=== PATIENT | female | born 1990 | race Caucasian/White ===

== ENCOUNTER → 2020-09-01 15:58 | Outpatient (CLI) | payer BC, SELFPAY ==
[2020-09-01 16:22] LABS: Basophils # 0.1 K/mm3 (0-0.2); Basophils % 0.5 % (0.1-2.0); Eosinophils # 0.2 K/mm3 (0.0-0.4); Eosinophils % 2.2 % (0.1-12.0); Hematocrit 40.2 % (37.0-47.0); Hemoglobin 12.6 g/dL (12.2-16.2); Lymphocytes # 3.2 K/mm3 (0.7-4.5); Lymphocytes % 30.3 % (10-50); Mean Corpuscular HGB Conc 31.3 g/dL (31.8-35.4); Mean Corpuscular Hemoglobin 25.5 pg (27.0-31.2); Mean Corpuscular Volume 81.5 fl (81-99); Mean Platelet Volume 9.4 fl (7.4-10.4); Monocytes # 0.5 K/mm3 (0.1-1.0); Monocytes % 4.6 % (1.7-9.3); Neutrophils # 6.6 K/mm3 (1.8-7.8); Neutrophils % 62.3 % (37.0-80.0); Platelet Count 303 K/mm3 (142-424); Red Blood Count 4.94 M/mm3 (4.20-5.40); Red Cell Distribution Width 14.9 % (11.5-17.5); White Blood Count 10.6 K/mm3 (4.8-10.8)
== END ==
PROVIDERS: PCP Family Medicine; Visit Provider Physician Assistant
DX: Z20.822 Contact with and (suspected) exposure to COVID-19 (principal)
CPT/HCPCS: 85025; U0003

== ENCOUNTER 2021-04-30 18:17 | Emergency (ER) | payer BC, SELFPAY ==
[2021-04-30 19:00] VITALS: BP 143/84; PULSE 68; RESP 22; TEMP 36.9; O2SAT 99; BMI 37.9
--- NOTE | 2021-04-30 20:12 | HMH.EDUTC ---
[facility] [place] Clinical Impression: Encounter for laboratory testing for COVID-19 virus Disposition: Home, Self-Care Condition on Discharge: Good Instructions: DI for COVID-19 (Suspected or Confirmed ), Preventing the Spread of Coronavirus Discharge Instructions Additional Instructions: *Monitor Temp, Over the counter Motrin or Tylenol as directed/as needed Tylenol every 4 hours and Motrin every 6 hours (as long as your family doctor has told you that you can take it) for fever or pain. and straight to ER if unable to lower temp less than 101.0 after medication given Follow up IMMEDIATELY for new or worsening symptoms or no Noticeable improvement over the next 48-72 hours. 911 for difficulty breathing or swallowing You were tested for today for COVID19 your test result should be back in the next 24-48 hours, you was given handout on how to log onto the [facility] portal to get your results if you have trouble logging on you may call the [facility] [place] You was given a handout with instructions for Self Quarantine and Self isolation for while you wait on test results and what to do if they are positive If you are positive the Health Dept will be contacting you also Make sure to take your Vitamins Vit. C Vit D and Zinc if you can take them Prescriptions: Brompheniramine/Pseudoephed/Dm [Bromfed Dm Cough Syrup] 5 - 10 ml PO Q46H PRN #200 ml PRN Reason: Cough Transmission Status: Pending to [id number] Referrals: Hiren Barrios MD [Primary Care Provider] - As needed Forms: Work/School Release Medical Decision Making - Narciso Inquiry Pt receiving controlled substance: No Narciso was queried for this patient: No Vital Signs: 04/30/21 19:00 Temperature 98.4 F Temperature Source Oral Pulse Rate [Right Brachial] 68 Respiratory Rate 22 Blood Pressure [Right Arm] 143/84 H Blood Pressure Mean [Right Arm] 103 Blood Pressure Source [Right Arm] Automatic Cuff Blood Pressure Position [Right Arm] Sitting 02 Sat by Pulse Oximetry 99 Oxygen Delivery Method Room Air Orders (Tests/Meds): ORDERS Category Date Time Status Covid-19 Nasal PCR ([facility]) Routine Lab 04/30/21 18:59 Ordered [facility] [place] HPI - General Stated complaint: covid test Time Seen by Provider: 04/30/21 20:12 Mode of Arrival: Ambulatory Source of Information: Patient Limitations: No Limitations Description of Symptoms (Recalled from Triage Doc. by RN): COVID TEST D/T EXPOSURE. DENIES SYMPTOMS HEENT Symptoms (Recalled from RN notes): No Resp Symptoms (Recalled from RN notes): No Skin Symptoms (Recalled from RN notes): No MS Symptoms (Recalled from RN notes): No Functional Status (Recalled from RN notes): WNL - History of Present Illness Provider Complaint: Patient states that she was recently around family member that tested positive for COVID States that she has been having cough today and runny nose with scratchy throat so she wanted to get tested - Related Data Previous Rx's Medication Instructions Recorded Brompheniramine/Pseudoephed/Dm 5 - 10 ml PO Q46H PRN #200 ml 04/30/21 [Bromfed Dm Cough Syrup] Allergies Allergy/AdvReac Type Severity Reaction Status Date / Time cefaclor Allergy Verified 04/30/21 19:37 Cephalosporins Allergy Verified 04/30/21 19:37 - Worker's Comp Is this a Worker's Comp case?: No [facility] History - Hepatitis A Screen Drug use history?: No High risk sexual behaviors?: No History of sexually transmitted infection?: No Currently employed?: No Childcare worker?: No Do you have indoor plumbing?: Yes Do you have electricity?: Yes Attestation statement:: This patient has been screened for Hepatitis A risk factors. I have reviewed the patient's past medical history: Yes - Social History Alcohol Intake: never Occupational Status: other Household Members: other ROS Obtained: Yes All systems reviewed & no additional complaints, Yes Systems reviewed as appropriate & no additional complaints - Co
[2021-04-30 20:19] VITALS: BP 143/84; PULSE 68; RESP 22; TEMP 36.9; O2SAT 99
== END 2021-04-30 20:29 | disposition home or self-care (01) ==
PROVIDERS: Emergency Provider Nurse Practitioner; PCP Family Medicine
DX: U07.1 COVID-19 (principal)
CPT/HCPCS: 99202; C9803; G0463; U0003; U0005

== ENCOUNTER 2021-08-17 09:44 | Emergency (ER) | payer OTHER, BC, SELFPAY ==
[2021-08-17 09:45] VITALS: BP 131/71; PULSE 81; RESP 20; TEMP 36.6; O2SAT 98; BMI 38.7
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
--- NOTE | 2021-08-17 10:12 | PC.NURSE ---
patient ambulatory to restroom
--- NOTE | 2021-08-17 10:19 | PC.NURSE ---
Patient back to room; hooked to monitor; urine speciman sent to lab
[2021-08-17 10:22] VITALS: O2SAT 99
[2021-08-17 10:40] LABS: Urine Pregnancy, HCG Qual. Negative (Negative)
[2021-08-17 11:21] VITALS: BP 131/71; PULSE 81; RESP 20; TEMP 36.7; O2SAT 98
== END 2021-08-17 11:21 | disposition home or self-care (01) ==
PROVIDERS: Emergency Provider Emergency Medicine; PCP Family Medicine
DX: S16.1XXA Strain of muscle, fascia and tendon at neck level, initial encounter (principal); S39.012A Strain of muscle, fascia and tendon of lower back, initial encounter; S29.012A Strain of muscle and tendon of back wall of thorax, initial encounter; V49.49XA Driver injured in collision with other motor vehicles in traffic accident, initial encounter; Y92.488 Other paved roadways as the place of occurrence of the external cause
CPT/HCPCS: 72040; 72070; 72100; 81025; 99282

== ENCOUNTER 2023-10-07 11:22 | Outpatient (CLI) | payer BC, SELFPAY ==
[2023-10-07 11:40] LABS: Basophils # 0.1 K/mm3 (0-0.2); Basophils % 0.9 % (0.1-2.0); Eosinophils # 0.1 K/mm3 (0.0-0.4); Eosinophils % 0.9 % (0.1-12.0); Hematocrit 36.9 % (37.0-47.0); Lymphocytes # 2.4 K/mm3 (0.7-4.5); Lymphocytes % 26.2 % (10-50); Mean Corpuscular HGB Conc 32.6 g/dL (31.8-35.4); Mean Corpuscular Hemoglobin 27.8 pg (27.0-31.2); Mean Corpuscular Volume 85.3 fl (81-99); Mean Platelet Volume 9.2 fl (7.4-10.4); Monocytes # 0.5 K/mm3 (0.1-1.0); Monocytes % 5.6 % (1.7-9.3); Neutrophils % 66.3 % (37.0-80.0); Platelet Count 254 K/mm3 (142-424); Red Blood Count 4.32 M/mm3 (4.20-5.40); Red Cell Distribution Width 14.6 % (11.5-17.5); White Blood Count 9.1 K/mm3 (4.8-10.8)
[2023-10-07 12:18] LABS: Alanine Aminotransferase 20 U/L (12-78); Albumin Level 4.2 g/dl (3.5-5.0); Alkaline Phosphatase 85 U/L (38-126); Anion Gap 8.8 mEq/L (5-15); Aspartate Amino Transferase 24 U/L (14-36); Bilirubin,Direct 0.1 mg/dl (0.0-0.4); Bilirubin,Indirect 0.1 mg/dL (0.0-0.9); Bilirubin,Total 0.2 mg/dl (0.2-1.3); Bilirubin,Unconjugated 0.1 mg/dL (0.0-1.1); Blood Urea Nitrogen 18 mg/dl (7-17); Calcium 9.6 mg/dl (8.4-10.2); Carbon Dioxide 29 mmol/L (22.0-30.0); Chloride 107 mmol/L (98-107); Chol/HDL Ratio 4.1 (1-3.5); Cholesterol 193 mg/dl (140-200); Estimated Glomerular Filt Rate 73 ml/min (>60); GFR (African American) 88 ML/MIN (>60); Glucose 89 mg/dl (74-100); HDL Cholesterol 47 mg/dl (40-60); Potassium 3.8 mmoL/L (3.5-5.1); Sodium 141 mmol/L (136-145); Total Protein,Serum 7.2 g/dl (6.3-8.2); Triglycerides 77 mg/dl (30-150); VLDL Cholesterol 15 mg/dL (0-40)
[2023-10-07 12:29] LABS: Direct LDL Cholesterol 102.16 mg/dL (100-129)
[2023-10-07 12:35] LABS: Free T4 (Free Thyroxine) 1.04 ng/dl (0.78-2.19)
[2023-10-07 12:48] LABS: Thyroid Stimulating Hormone 3.49 uIU/mL (0.465-4.68)
== END 2023-10-07 23:59 ==
LOC: LAB 11:23
PROVIDERS: PCP Family Medicine; Visit Provider Nurse Practitioner
DX: I34.1 Nonrheumatic mitral (valve) prolapse (principal); R01.1 Cardiac murmur, unspecified; R07.89 Other chest pain; R06.00 Dyspnea, unspecified; I11.9 Hypertensive heart disease without heart failure; K21.9 Gastro-esophageal reflux disease without esophagitis
CPT/HCPCS: 36415; 80048; 80061; 80076; 84439; 84443; 85025

== ENCOUNTER 2023-10-28 07:06 | Outpatient (CLI) | payer BC, SELFPAY ==
--- NOTE | 2023-10-28 07:07 | CT_ITS ---
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 A noncontrast coronary calcium scan was performed. A CT attenuation threshold of 130 Hounsfield units (HU) was used for the detection of calcium in contiguous voxels of 1 sq mm in area to be counted as individual lesions. Bolus tracking in the ascending aorta with a threshold of 180 HU was performed. Immediately afterwards, ECG synchronized cardiac CT was then performed from the cardiac base to apex using retrospective gating with ECG tube current modulation. A total of 85 mL of Isovue 370 mg/mL contrast medium was administered at 5 mL/sec followed by a saline flush using a biphasic injection protocol. A tube voltage of 120 KVp was used. The patient received the following medications prior to the cardiac CT. 0.4 mg of sublingual nitroglycerin The average heart rate at the time of acquisition was 48 bpm and regular. Image Reconstruction Transaxial images were reconstructed at 0.67 mm slide thickness. Data was reviewed interactively on an advanced workstation capable of 2 and 3-dimensional displays in all conventional reconstruction formats, including multiplanar reformations, maximum intensity projections, curved multiplanar reformations, and volume rendered reconstructions. When applicable, selected routine images describing the relevant coronary anatomy and pathology were saved and sent to PACS. Complications None Technical Quality Overall image quality was good. Coronary artery opacification was adequate. Total DLP (Dose-Length Product) is 2264.4 mGy-cm. The reported value represents the total of one or more individual components during the CT acquisition of this date and at this time, and as such, the same value may appear in more than one CT report depending on the interpreting/reporting physicians. COMPARISON None FINDINGS CT Coronary Calcium Scoring LMA (Left Main Artery) = 0 LAD (Left Anterior Descending) = 0 LCX (Left Coronary Circumflex) = 0 RCA (Right Coronary Artery) = 0 Total Calcium Score = 0 using the AJ-130 method. The interpretation of the calcium heart score is based on the following continuum*: 0 = no calcified plaque detected (risk of coronary artery disease is very low ??? less than 5%) 1-10 = calcium detected in extremely minimal levels (risk of coronary diseases is still low ??? less than 10%) 11-100 = mild levels of plaque detected with certainty (mild or minimal narrowing of heart arteries is likely) 101-400 = definite,at least moderate levels of plaque detected (relatively high risk of a heart attack within 3-5 years) >401-999 = extensive levels of plaque detected (high risk of heart attack, high levels of vascular disease are present, high likelihood of at least one significant coronary narrowing) *The calcium heart score quantifies the burden of coronary calcification/plaque in the coronary arteries. The calcium heart score is not able to evaluate the presence or burden of non-calcified (i.e. soft) plaque. There is no identifiable calcification in the aortic valve, mitral annulus or mitral valve, pericardium, or myocardium. Coronary CT Angiography The coronary arterial system is right dominant. Quantitative Stenosis Grading: Left Main (LM): The left main originates normally from the left sinus of Valsalva. The LM bifurcates into the left anterior descending artery and left circumflex artery. The LM is patent with no evidence of atherosclerosis. Left Anterior Descending (LAD) and Diagonal Branches: The LAD gives off 3 diagonal branches. The LAD and its branches are patent with no evidence of atherosclerosis. There is no evidence of LAD-myocardial bridge. Left Circumflex (LCX) and Obtuse Marginals (OM): The LCX gives off 1 Obtuse Marginal (OM) branch. The LCX and its branches are patent with no evidence of atherosclerosis. Right Coronary Artery (RCA): The RCA originates normally from the right sinus of Valsalva. The RCA gives off a posterior descending artery (PDA) and posterolateral (PL) branches. The RCA and its branches are patent with no evidence of atherosclerosis. Non-Coronary Cardiac Findings: Analysis of the left ventricular (LV) structure and function was performed after 3-D reconstruction of the LV from axial images, with user-corrected automatic contouring for assessment of LV volumes and user-defined reconstruction from oblique planes for measurement of 3-D cardiac structure and function. -The left ventricle systolic function is normal. -There is no left atrial appendage filling defect. Two right pulmonary veins and two left pulmonary veins drain normally into the left atrium. -No pericardial thickening or calcification. -Central and branch pulmonary arteries in the [id number] are unremarkable. -Thoracic aorta within the visualized thoracic aortic-branches in the [id number] is unremarkable. Extracardiac Structures No significant extra-cardiac findings. Note, however, that this study is focused on the cardiac findings. IMPRESSION -No coronary calcification with an Agatston score = 0 using the AJ-130 method. -No evidence of significant flow-limiting atherosclerosis of the coronary arteries. -No evidence of coronary anomalies or myocardial bridges. -CAD-RADS 0. Management recommendations per ACC/AHA guidelines*, as clinically appropriate. *Recommendations: CAD RADS 0: Reassurance. Consider non-atherosclerotic causes of chest pain. CAD RADS 1: Consider non-atherosclerotic causes of chest pain. Consider preventive therapy and risk factor modification. CAD RADS 2: Consider non-atherosclerotic causes of chest pain. Consider preventive therapy and risk factor modification, particularly for patients with nonobstructive plaque in multiple segments. CAD RADS 3: Consider further functional testing. Consider symptom-guided anti-ischemic and preventive pharmacotherapy as well as risk factor modification per published guideline statements. CAD RADS 4A: Consider further functional testing or invasive coronary angiography with revascularization per published guideline statements. Consider symptom-guided anti-ischemic and preventive pharmacotherapy as well as risk factor modification per published guideline statements. CAD RADS 4B: Invasive coronary angiography recommended with revascularization per published guideline statements. Consider symptom-guided anti-ischemic and preventive pharmacotherapy as well as risk factor modification per published guideline statements. CAD RADS 5: Consider invasive angiography and/or viability assessment with revascularization per published guideline statements. Consider symptom-guided anti-ischemic and preventive pharmacotherapy as well as risk factor modification per published guideline statements. CRITICAL RESULT None COMMUNICATION Per this written report The coronary and cardiac findings of this CCTA were reviewed, reported, and signed by Cholo Bishop MD ([employer]) Conclusion Electronically signed by : Mya Bisohp MD 10/29/2023 23:37:24
[2023-10-28 07:25] VITALS: BMI 81.8
--- NOTE | 2023-10-28 07:40 | CA_ITS ---
APPROVED REPORT EXAM: Comprehensive 2D, Doppler, and color-flow Echocardiogram Internet Systems Administrator: Yasmin Dobbs CRT Ht: 5 ft 6 in Wt: 243lbs BSA: 2.17 BP: 146/74 mmHg Indications: Chest Pain, Murmur 2D Dimensions LA Volume 59.50 mL LA Volume Index 27.42 mL/m2 (M/F) 16-34 M-Mode Dimensions RVDd 2.66 cm (0.9-2.6) LA Diam 3.38 cm (1.9-4.0) LVDd 5.32 cm (3.5-5.7) LVDs 3.35 cm (3.5-5.7) IVSd 1.22 cm (0.6-1.1) PWd 0.78 cm (0.6-1.1) EF (Teich) 66.40% FS 37.00% EDV (Teich) 136.50 mL TAPSE 2.87 (<1.7) ESV (Teich) 45.80 mL LV Diastology E Decel Time 207 (160-240 msec) E/A Ratio 1.57 MED A' 10.50 cm/s LAT A' 8.90 cm/s Aortic Valve AO Peak GR. 10.80 mmHg Mitral Valve MV A Velocity 75.0 (40-130 cm/s) E/A Ratio 1.57 Pulmonary Valve PV Peak Velocity 195.0 (50-150 cm/s) Tricuspid Valve TR P. Velocity 296.00 cm/s RAP Estimate 10.00 mmHg RVSP 45.00 mmHg Left Ventricle The left ventricle is normal size. The left ventricular systolic function is normal. The left ventricular ejection fraction is within the normal range. There is normal left ventricular wall thickness. There is normal LV segmental wall motion. The left ventricular diastolic function is normal. LVEF is 55%. Right Ventricle The right ventricle is normal size. The right ventricular systolic function is normal. Atria The left atrium size is normal. The right atrium size is normal. There is no Doppler evidence of interatrial shunt. Aortic Valve The aortic valve is normal in structure. The aortic valve is trileaflet. There is no aortic valvular stenosis. No aortic regurgitation. Mitral Valve The mitral valve is normal in structure. No evidence of mitral valve stenosis. Trace mitral regurgitation. Tricuspid Valve The tricuspid valve leaflets are thin and pliable. Mild tricuspid regurgitation. RVSP is 20-25 mmHg. Pulmonic Valve The pulmonary valve is normal in structure. Trace pulmonic regurgitation. Great Vessels The aortic root is normal in size. The ascending aorta is normal in size. IVC is normal in size and collapses >50% with inspiration. Pericardium There is no pericardial effusion. Other Information Study Quality: Fair Conclusion Normal biventricular systolic function. Mild TR. Electronically signed by : Mya Bishop MD 10/29/2023 23:01:53
[2023-10-28 07:58] LABS: Urine Pregnancy, HCG Qual. Negative (Negative)
[2023-10-28 08:01] VITALS: BP 108/48; PULSE 59; RESP 14; O2SAT 100
[2023-10-28] MEDS: NITROGLYCERIN 0.4MG SL TABLET 0.400000000000000022 MG SL (08:01)
[2023-10-28 08:03] VITALS: BP 98/52; PULSE 58; RESP 16; O2SAT 100
[2023-10-28 08:06] VITALS: BP 104/52; PULSE 54; RESP 16; O2SAT 100
[2023-10-28] MEDS: IOPAMIDOL-370 (76%);100ML BOTTLE 85 ML IV (08:18)
[2023-10-28] MEDS: SODIUM CHLORIDE 0.9% 10ML SYR (RAD ONLY) 10 ML IV (08:18)
[2023-10-28] MEDS: 0.9 % SODIUM CHLORIDE 50 ML VIAL IV (08:18)
[2023-10-28 08:20] VITALS: BP 105/58; PULSE 67; RESP 16; O2SAT 100
== END 2023-10-28 23:59 ==
LOC: RAD 07:07
PROVIDERS: PCP Family Medicine; Visit Provider Nurse Practitioner
DX: R07.89 Other chest pain (principal); I34.1 Nonrheumatic mitral (valve) prolapse; R01.1 Cardiac murmur, unspecified
CPT/HCPCS: 75571; 75574; 81025; 93306; Q9967

== ENCOUNTER 2023-12-12 14:24 | Outpatient (CLI) | payer BC, SELFPAY ==
[2023-12-12 14:55] LABS: Alanine Aminotransferase 21 U/L (12-78); Alkaline Phosphatase 68 U/L (38-126); Amylase 40 U/L (30-110); Aspartate Amino Transferase 29 U/L (14-36); Bilirubin,Total 0.7 mg/dl (0.2-1.3); Blood Urea Nitrogen 14 mg/dl (7-17); Calcium 10.5 mg/dl (8.4-10.2); Carbon Dioxide 29 mmol/L (22.0-30.0); Chloride 104 mmol/L (98-107); Estimated Glomerular Filt Rate 84 ml/min (>60); GFR (African American) 101 ML/MIN (>60); Glucose 82 mg/dl (74-100); Sodium 141 mmol/L (136-145)
[2023-12-12 14:56] LABS: Albumin Level 4.2 g/dl (3.5-5.0); Albumin/Globulin Ratio 1.4 (1.1-1.8); Total Protein,Serum 7.2 g/dl (6.3-8.2)
[2023-12-12 14:57] LABS: Lipase 49 U/L (23-300)
== END 2023-12-12 23:59 | disposition home or self-care (01) ==
LOC: LAB 14:26
PROVIDERS: PCP Family Medicine; Visit Provider Physician Assistant
DX: R10.11 Right upper quadrant pain (principal)
CPT/HCPCS: 36415; 80053; 82150; 83690

== ENCOUNTER 2024-06-14 09:40 | Outpatient (CLI) | payer BC, SELFPAY ==
--- NOTE | 2024-06-14 09:44 | XR_ITS ---
FINAL REPORT CLINICAL HISTORY: Foot Pain FINDINGS: AP, oblique and lateral views of the left foot were obtained. There is no prior exam for comparison. There is no acute fracture or dislocation. The joint spaces are preserved. Soft tissues are normal. IMPRESSION: No acute osseous abnormality of the left foot. Reviewed, Interpreted and Dictated by Radha Steward MD Transcribed by Ivis Garay Authenticated and [facility]
--- NOTE | 2024-06-14 09:44 | XR_ITS ---
FINAL REPORT CLINICAL HISTORY: Foot Pain FINDINGS: AP, oblique and lateral views of the right foot were obtained. There is no prior exam for comparison. There is no acute fracture or dislocation. The joint spaces are preserved. Soft tissues are normal. IMPRESSION: No acute osseous abnormality of the right foot. Reviewed, Interpreted and Dictated by Radha Steward MD Transcribed by Ivis Garay Authenticated and [facility]
== END 2024-06-14 23:59 | disposition home or self-care (01) ==
LOC: RAD 09:41
PROVIDERS: PCP Psychiatry & Neurology Sleep Medicine; Visit Provider Podiatrist
DX: M79.671 Pain in right foot (principal); M79.672 Pain in left foot
CPT/HCPCS: 73630

== ENCOUNTER 2025-07-10 18:17 | Emergency (ER) | payer BC, SELFPAY ==
--- OUTSIDE RECORDS SUMMARY | 2024-05-31 04:30 | XMS_ITS ---
Author Organization [facility] Address [facility] [address] [place] [id number] Care Team Providers Care Fur Ironer Name Role Phone Lux Barrios Primary Care Provider Kristen Reynaga Unavailable [phone] Allergies Allergen (clinical drug ingredient) Drug/Non Drug Allergy documented on EMR Reaction Allergy Type Onset Date Status cefaclor Cefaclor joint swelling Drug Allergy Ac tive Substance with penicillin structure and antibacterial mechanism of action (substance) Penicillins joint swelling Drug Allergy Active Results Component Value Reference Range Notes CBC Venipuncture (in house) Reviewed date:06/01/2024 09:17:48 AM Interpretation:Normal Performing Lab: Notes/Report: Normal wbc 7.6 3.5 - 10 lymph 35.8 15 - 50 mid 7.8 2 - 15 gran 56.4 35 - 80 rbc 4.71 3.5 - 5.5 hgb 12.7 11.5 - 16.5 hct 38.6 35 - 55 mcv 81.9 75 - 100 mch 26.9 25 - 35 mchc 32.8 31 - 38 platlet 279 100 - 400 Glycohemoglobin A1c (in hous e) Reviewed date:06/01/2024 09:19:43 AM Interpretation:5.1% Performing Lab: Notes/Report: 5.1% glycohemoglobin 5.1% 5 - 6.5 % P-Comprehensive Metabolic Pa gregoria (CMP) Reviewed date:06/01/2024 09:19:21 AM Interpretation:Normal Performing Lab: Notes/Report: CLIA: [id number] Chris Carrington MD, [employer] [address] [place] [address] , [place] [address] Test performed by [facility] Sodium 139 135-145 mmol/L Potassium 4.5 3.5-5.3 mmol/L Chloride 105 97-108 mmol/L CO2 23 22-32 mmol/L Glucose 87 65-99 mg/dL BUN 12 6-20 mg/dL Creatinine 0.77 0.50-1.00 mg/dL Calcium 9.6 8.6-10.4 mg/dL eGFR by Creatinine 105 >59 mL/min/1.73m2 Protein 6.8 6.0-8.3 g/dL Albumin 4.1 3.5-5.3 g/dL Alkaline Phosphatase 104 35-121 IU/L ALT (SGPT) 14 <5-47 IU/L AST (SGOT) 15 <5-40 IU/L Bilirubin, Total 0.5 <0.2-1.2 mg/dL A/G Ratio 1.5 1.1-2.5 P-Iron Reviewed date:06/01/2024 09:18:38 AM Interpretation:102 Performing Lab: Notes/Report: Test performed by [facility] [address] [place] [address] , [place] [address] Chris Carrington MD, [employer] CLIA: [id number] Iron 102 37-145 ug/dL P-Lipid Panel Reviewed date:06/01/2024 09:17:21 AM Interpretation:LDL 119; HDL 46;TG 101 Performing Lab: Notes/Report: Test performed by [facility] [address] [place] [address] , [place] [id number] Chris Carrington MD, [employer] CLIA: [id number] Cholesterol 185 <200 mg/dL Triglycerides 101 <150 mg/dL HDL Cholesterol 46 >39 mg/dL Cholesterol / HDL Ratio 4.02 0.00-4.44 Ratio Non-HDL Cholesterol 139 <130 mg/dL LDL Cholesterol (Calculation) 119 <130 mg/dL LDL Cholesterol Levels* Less than 100 mg/dL Optimal 100 to 129 mg/dL Near Optimal/ Above Optimal 130 to 159 mg/dL Borderline High 160 to 189 mg/dL High 190 mg/dL and above Very High * Categories as recommended by the 2004 ATPIII guidelines LDL/HDL Ratio 2.6 <3.3 Ratio LDL Cholesterol Patient History Test Date: 05/31/2024 LDL Results: 119 Units: mg/dL % Change: - P-T4 (Thyroxine) Reviewed date:06/01/2024 09:18:14 AM Interpretation:6.82 Performing Lab: Notes/Report: Test performed by [facility] [address] [place], [place] [address] , [place] [address] Chris Carrington MD, [employer] CLIA: [id number] Thyroxine (T4) 6.82 4.50-11.70 ug/dL P-TSH Reviewed date:06/01/2024 09:19:01 AM Interpretation:1.76 Performing Lab: Notes/Report: Test performed by [facility] [address] [place], [place] [address] [place] [address] Chris Carrington MD, [employer] CLIA: [id number] TSH 1.76 0.43-5.25 mU/L Reason For Referral Diagnosis 1 Foot pain, bilateral (M79.671) Referral Organization [facility] Referring Provider First Name Kristen Referring Provider Last Name Juhi Referring Provider Speciality Family Pra ctice Referred Provider PODIATRY, . Referred Provider Specialty Podiatry General Notes Kristen Reynaga 9:59:50 AM > bilateral foot pain; has tried inserts and change of foot wear; will xray today, Elyssa To 06/01/2024 10:17:06 AM > faxed to [facility] Podiatry, Elyssa To 06/04/2024 10:34:16 AM > Elyssa To 06/04/2024 10:32:54 AM > spoke with [place]; said she does not have referral; double-checked that our fax number for them was correct and it is; she said someone could have done something with it ; Zuleika cardenas Brynn 06/07/2024 9:35:22 AM > spoke with [place]; they still do not have the referral; double checked with the office about fax number and they say it is correct; Zuleika cardenas Brynn 06/07/2024 9:59:11 AM > fax received by office Referral Priority Routine REASON FOR VISIT blood work and check up Medications Medication SIG (Take, Route, Frequency, Duration) Notes Start Date End Date Status Levothyroxine Sodium 25 MCG 1 tab(s) orally once a day; Duration: 30 day(s) 09/01/2022 Not-Taking Vital Signs Blood pressure systolic 124 mm Hg 05/31/20 24 Blood pressure diastolic 76 mm Hg 024 Heart Rate 56 /min 05/31/2024 Height 66 in 05/31/2024 Weight 250.4 lbs 05/31/2024 BMI 40.41 kg/m2 05/31/2024 Encounters Encounter Location Date Provider Diagnosis [facility] [address] [place] [id number] 05/31/2024 Kristen Reynaga Thyroid disorder screen Z13.29 ; Diabetes mellitus screening Z13.1 ; Iron deficiency anemia secondary to inadequate dietary iron intake D50.8 ; Lipid screening Z13.220 and Foot pain, bilateral M79.671 Assessments Encounter Date Diagnosis (ICD Code) Assessment Notes Treatment Notes Treatment Clinical Notes Section Notes 05/31/2024 Thyroid disorder screen (ICD-10 - Z13.29) 05/31/2024 Diabetes mellitus screening (ICD-10 - Z13.1) 05/31/2024 Iron deficiency anemia secondary to inadequate dietary iron intake (ICD-10 - D50.8) 05/31/2024 Lipid screening (ICD-10 - Z13.220) 05/31/2024 Foot pain, bilateral (ICD-10 - M79.671) she walks on concrete all nigh with her job at ; she has tried different ensoles and shoes; she ices her feet at night after work and uses heat other guzman; suggested she wear shoes with arch supports around the house; demonstrated foot exercises/ stretches Plan Of Treatment Treatment Notes Assessment Notes Foot pain, bilateral she walks on concre te all nigh with her job at ; she has tried different ensoles and shoes; she ices her feet at night after work and uses heat other guzman; suggested she wear shoes with arch supports around the house; demonstrated foot exercises/ stretches Pending Test Test Name Order Date X ray : Foot, left 05/31/2024 X ray : Foot, right 05/31/2024 Referrals Referral Date Details 05/31/2024 05/31/2024, . PODIAT RY Next Appt Details Follow Up: will notify of te st results, Reason: Progress Notes * RASHADCATRACHOSHAHABDOB: [birth year] (35 yo F)Acc No.[id number]:05/31/2024 Progress Notes Patient: LISSETH FREY Provider: EVANS Pichardo :1990 A ge:34 Y S ex:Female Date:05/31/2024 Address:[address] [place] [address], [place], [id number] Pcp:Lux Barrios Subjective: * Chief Complaints: * 1 . Blood work and check up. * HPI: H PI: Patient is here today for a check up with fasting labs. Pt sts that she has some family Hx of diabetes and would like to be screened. Pt sts that she would also like to get her thyroid checked. Pt sts that she has bad foot pain and would like to get her feet examined today. * ROS: R ESPIRATORY: no S hortness of breath. n o C hest congestion.?no C ough. C ARDIOLOGY: no C hest pain. n o P alpitations. n o L eg edema. n o S hortness of breath. D ERMATOLOGY: no R charmaine. n o H jennifer. * Medical History: C at [employer] 6 yo, Current on immunizations., Mitral valve prolapse. * Surgical History: C section 05/2010. * Family History: F ather: alive 44 yrs. M other: alive 42 yrs. P aternal Grand Father: . P aternal Grand Mother: alive. 1 brother(s) , 1 sister(s) . . * Social History: C URRENT TOBACCO USE: No . C affeine: yes, frequency:some. Home smoke detector use: no. Past smoking status: no, Smoking status: Does not smoke. Alcohol: no. * Medications: N ot-Taking Levothyroxine Sodium 25 MCG Tablet 1 tab(s) orally once a day , Discontinued Bactrim DS 800-160 MG Tablet 1 tablet Orally Two times a day , Discontinued Ondansetron 4 MG Tablet Disintegrating 1 tablet on the tongue and allow to dissolve Orally three times a day as needed , Medication List reviewed and reconciled with the patient * Allergies: P enicillins: joint swelling, Cefaclor: joint swelling. Objective: * Vitals: W t:250.4, Temp:98.1, BP:124/76, HR:56, Nurse:WMViki, Ht: 66, BMI:40.41. * Examination: G eneral Examination: General Appearance: NAD appears healthy alert pleasant Color good. H EENT: sclera and conjunctiva clear, PERRLA, TM's normal, translucent. O ral cavity: mucosa moist and WNL no erythema. N erica: supple no lymphadenopathy no carotid bruits no thyromegaly. H eart: RRR 50/min. L ungs: CTAB A&P. A bdomen: bowel sounds present soft and nontender. N eurologic Exam: alert and oriented.?Extremities: no leg edema. A nkle / Foot: Inspection: no swelling or ecchymosis. P alpation:? tenderness at insertion of plantar fascia-worse on the right. R ang of motion: normal inversion and eversion normal dorsiflexion and plantar flexion of both feet. G ait: normal. F oot: bilateral. Assessment: * Assessment: 1. T hyroid disorder screen - Z13.29 (Primary) 2 . D iabetes mellitus screening - Z13.1 3 . I therese deficiency anemia secondary to inadequate dietary iron intake - D50.8 4 . L ipid screening - Z13.220 5 . F oot pain, bilateral - M79.671 Plan: * Treatment: Value Reference Range T hyroxine (T4) 6.82 4.50-11.70 - ug/dL * Kristen Reynaga 06/01/2024 9:13:18 AM > I spoke with pt and reported results ?LAB: P-TSH (Collection Date & Time - 05/31/2024 09:05 AM)?1.76* Value Reference Range T SH 1.76 0.43-5.25 - mU/L * Kristen Reynaga 06/01/2024 9:18:48 AM > I spoke with pt and reported results 2.?Diabetes mellitus screening?LAB: Glycohemoglobin A1c (in house) (Collection Date & Time - 05/31/2024)? 5.1%* Value Reference Range g lycohemoglobin 5.1% 5 - 6.5 % * Cristela Curiel 05/31/2024 11: 52:54 AM >Kristen Reynaga 06/01/2024 9:19:30 AM > I spoke with pt and reported results 3.?Iron deficiency anemia secondary to inadequate dietary iron intake?LAB: P-Comprehensive Metabolic Panel (CMP) (Collection Date & Time - 05/31/2024 09:05 AM)?Normal* Value Reference Range A /G Ratio 1.5 1.1-2.5 - * A lbumin 4.1 3.5-5.3 - g/dL * A lkaline Phosphatase 104 35-121 - IU/L * A LT (SGPT) 14 <5-47 - IU/L * A ST (SGOT) 15 <5-40 - IU/L * B ilirubin, Total 0.5 <0.2-1.2 - mg/dL * B UN 12 6-20 - mg/dL * C alcium 9.6 8.6-10.4 - mg/dL * C hloride 105 97-108 - mmol/L * C O2 23 22-32 - mmol/L * C reatinine 0.77 0.50-1.00 - mg/dL * G lucose 87 65-99 - mg/dL * P otassium 4.5 3.5-5.3 - mmol/L * S odium 139 135-145 - mmol/L * P rotein 6.8 6.0-8.3 - g/dL * e GFR by Creatinine 105 >59 - mL/min/1.73m2 * Kristen Reynaga 06/01/2024 9:19:08 AM > I spoke with pt and reported results ?LAB: P-Iron (Collection Date & Time - 05/31/2024 09:05 AM)?102* Value Reference Range I therese 102 37-145 - ug/dL * Kristen Reynaga 06/01/2024 9:18:23 AM > I spoke with pt and reported results ?LAB: CBC Venipuncture (in house) (Collection Date & Time - 05/31/2024)? Normal* Value Reference Range w bc 7.6 3.5 - 10 * l ymph 35.8 15 - 50 * m id 7.8 2 - 15 * g ran 56.4 35 - 80 * r bc 4.71 3.5 - 5.5 * h gb 12.7 11.5 - 16.5 * h ct 38.6 35 - 55 * m cv 81.9 75 - 100 * m ch 26.9 25 - 35 * m chc 32.8 31 - 38 * p latlet 279 100 - 400 * Cristela Curiel 05/31/2024 11: 53:55 AM >Kristen Reynaga 06/01/2024 9:17:32 AM > I spoke with pt and reported results 4.?Lipid screening?LAB: P-Lipid Panel (Collection Date & Time - 05/31/2024 09:05 AM)?LDL 119; HDL 46;TG 101* Value Reference Range C holesterol / HDL Ratio 4.02 0.00-4.44 - Ratio * C holesterol 185 <200 - mg/dL * H DL Cholesterol 46 >39 - mg/dL * L DL Cholesterol (Calculation) 119 <130 - mg/d L * L DL/HDL Ratio 2.6 <3.3 - Ratio * N on-HDL Cholesterol 139 H <130 - mg/dL * T riglycerides 101 <150 - mg/dL * Kristen Reynaga 06/01/2024 9:16:42 AM > I spoke with pt and reported results; discussed lowfat/cho diet 5.?Foot pain, bilateral?Imaging: X ray : Foot, left ?Imaging: X ray : Foot, right Notes: she walks on concrete all nigh with her job at ; she has tried different ensoles and shoes; she ices her feet at night after work and uses heat other guzman; suggested she wear shoes with archsupports around the house; demonstrated foot exercises/ stretches? Referral To:. PODIATRY??Podiatry ?Reason: * Procedure Codes: 3 6416 CAPILLARY BLOOD DRAW, 56216 GLYCATED HEMOGLOBIN TEST, Modifiers: QW , 14264 CBC WITH AUTO DIFF, 03761 VENIPUNCT, ROUTINE* * Follow Up: w ill notify of test results * Images: Billing Information: * Visit Code: 03616 Office Visit, Est Pt., Level 4. * Procedure Codes: 10484 CAPILLARY BLOOD DRAW. 90953 GLYCATED HEMOGLOBIN TEST. Modifiers: QW 10353 CBC WITH AUTO DIFF. 56958 VENIPUNCT, ROUTINE*. * Electronic signature of Nevin Reynaga APRN on 07/10/2025 at 06:28 PM EST Sign off status: Pending * Provider: EVANS Pichardo Date: 07/31/2023 Generated for Chandler aaron/Sadie/Helen on: 09/10/2024 06:28 PM EST History and Physical Notes * HPI (History of Present Illness) Category Sub-Category Detail Notes Category Not es HPI Patient is here today for a [facility] k up with fasting labs. Pt sts that she has some family Hx of diabetes and would like to be screened. Pt sts that she would also like to get her thyroid checked. Pt sts that she has bad foot pain and would like to get her feet examined today Examination Category Sub-Category Detail Notes Category Not es General Examination HEENT: sclera and c onjunctiva clear, PERRLA, TM's normal, translucent Heart: RRR 50/min Lungs: CTAB A&P Abdomen: bowel sounds present soft and nontender Extremities: no leg edema General Appearance: NAD appears healthy alert pleasant Color good Neurologic Exam: alert and oriented Neck: supple no lymphadeno moncho no carotid bruits no thyromegaly Oral cavity: mucosa moist and WNL no erythema Ankle / Foot Gait: normal Inspection: no swelling or ecchy mosis Palpation: tenderness at insert ion of plantar fascia-worse on the right Range of motion: normal inversion and eversion normal dorsiflexion and plantar flexion of both feet Foot: bilateral Consultation Request Notes Referral Date Referring Provider Referred Provider Not es 05/31/2024 Kristen Reynaga PODIATRY, .
--- OUTSIDE RECORDS SUMMARY | 2024-10-11 09:45 | XMS_ITS ---
Author Organization [facility] Address [address] [facility] [address] [place] [phone] Care Team Providers Care Convolute Tube Winder Name Role Phone Lux Barrios Primary Care Provider [phone] Kristen Reynaga [phone] Allergies Allergen (clinical drug ingredient) Drug/Non Drug Allergy documented on EMR Reaction Allergy Type Onset Date Status cefaclor Cefaclor joint swelling Drug Allergy Ac tive Substance with penicillin structure and antibacterial mechanism of action (substance) Penicillins joint swelling Drug Allergy Active REASON FOR VISIT FEELS DEPRESSED Medications Medication SIG (Take, Route, Frequency, Duration) Notes Start Date End Date Status Zoloft 50 MG 1 tablet Orally Once a day; Duration: 30 day(s) 10/11/2024 Active Problems Problem Type SNOMED Code ICD Code Onset Dates Problem Status W/U Status Risk Notes Problem Major depression, single episode ([id number]) Major depressive disorder, remission status unspecified, unspecified whether recurrent (F32.9) Active confirmed Vital Signs Blood pressure systolic 124 mm Hg 10/12/19 25 Blood pressure diastolic 70 mm Hg 025 Heart Rate 64 /min 10/11/2024 Height 66 in 10/11/2024 Weight 251.8 lbs 10/11/2024 BMI 40.64 kg/m2 10/11/2024 Encounters Encounter Location Date Provider Diagnosis [facility] [address] [facility] [address] [place] [id number] 10/11/2024 Kristen Reynaga Depression 311 and Major depressive disorder, remission status unspecified, unspecified whether recurrent F32.9 Assessments Encounter Date Diagnosis (ICD Code) Assessment Notes Treatment Notes Treatment Clinical Notes Section Notes 10/11/2024 Depression (ICD-10 - 311) is seeing a counselor weekly and will continue to do so 10/11/2024 Major depressive disorder, remission status unspecified, unspecified whether recurrent (ICD-10 - F32.9) Plan Of Treatment Medication Medication Name Sig Start Date Stop Date Notes Zoloft 50 MG 1 tablet Orally Once a day; Duration: 30 day(s) 10/11/2024 Treatment Notes Assessment Notes Depression is seeing a counselo r weekly and will continue to do so Next Appt Details Follow Up: 2 Weeks, Reason: Progress Notes * LISSETH SOLORZANODOB: [birth year] (35 yo F)Acc No.[id number]:10/11/2024 Progress Notes Patient: LISSETH FREY Provider: EVANS Pichardo :1990 A ge:34 Y S ex:Female Date:10/11/2024 Address:[facility] [address], [place], [id number] Pcp:Lux Barrios Subjective: * Chief Complaints: * 1 . FEELS DEPRESSED. * HPI: P sychology: 34 year old female presents with c/o stress. c/o sleep disturbances. c/o Appetite Change. c/o depression P t sts she is here today with c/o being depressed and would like medication for that and anxiety. Denies : thoughts of hurting self. has family issues with daughters ; ex boyfriend has left; both daughters are in therapy and they are also in family therapy; Pt works nights at ; she does not smoke or dring ETOH; she is eating very ittle and has not been sleeping; is seeing a therapist weekly. * ROS: R ESPIRATORY: no S hortness [...] not smoke. Alcohol: no. * Medications: N one * Allergies: P enicillins: joint swelling, Cefaclor: joint swelling. Objective: * Vitals: W t: 251.8, Temp: 97.8, BP: 124/70, HR: 64, Nurse: zahida, Ht: 66, BMI:40.64. * Examination: G eneral Examination: General Appearance: NAD, appears healthy, alert, pleasant. H eart: RRR. L ungs: CTAB A&P. P sychology: Grooming : neat. E ye contact : normal. M ood : depressed. Assessment: * Assessment: 1. D epression - 311 (Primary) 2 . M ajor depressive disorder, remission status unspecified, unspecified whether recurrent - F32.9 Plan: * Treatment: * Procedure Codes: 3 074F SYST BP LT 130 MM HG, 3078F DIAST BP < 80 MM HG * Follow Up: 2 Weeks * Images: Billing Information: * Visit Code: 87371 Office Visit, Est Pt., Level 3. * Procedure Codes: 3074F SYST BP LT 130 MM HG. 3078F DIAST BP < 80 MM HG. * Electronic signature of Nevin Reynaga APRN on 07/10/2025 at 06:27 PM EST Sign off status: Pending * Provider: EVANS Pichardo Date: 0 10/11/2024 Generated for Chandler aaron/Sadie/Helen on: 1 09/10/2024 06:27 PM EST History and Physical Notes * HPI (History of Present Illness) Category Sub-Category Detail Notes Category Not es Psychology Appetite Change has family i ssues with daughters ; ex boyfriend has left; both daughters are in therapy and they are also in family therapy; Pt works nights at ; she does not smoke or dring ETOH; she is eating very ittle and has not been sleeping; is seeing a therapist weekly sleep disturbances stress thoughts of hurting self depression Pt sts she is here t moise with c/o being depressed and would like medication for that and anxiety Examination Category Sub-Category Detail Notes Category Not es General Examination Heart: RRR Lungs: CTAB A&P General Appearance: NAD, appears healthy , alert, pleasant Psychology Grooming : neat Eye contact : normal Mood : depressed
--- OUTSIDE RECORDS SUMMARY | 2024-10-25 05:00 | XMS_ITS ---
Author Organization [facility] Address [address] [facility] [address] [place] [id number] Care Team Providers Care Commercial Project Manager Name Role Phone Lux Barrios Primary Care Provider Kristen Reynaga [phone] Allergies Allergen (clinical drug ingredient) Drug/Non Drug Allergy documented on EMR Reaction Allergy Type Onset Date Status cefaclor Cefaclor joint swelling Drug Allergy Ac tive Substance with penicillin structure and antibacterial mechanism of action (substance) Penicillins joint swelling Drug Allergy Active REASON FOR VISIT 2 week f/u Medications Medication SIG (Take, Route, Frequency, Duration) Notes Start Date End Date Status Zoloft 50 MG 1 tablet Orally Once a day Active Problems Problem Type SNOMED Code ICD Code Onset Dates Problem Status W/U Status Risk Notes Problem Persistent depressive disorder (6554045026) Persistent depressive disorder (F34.1) Active confirmed Vital Signs Blood pressure systolic 120 mm Hg 10/26/19 25 Blood pressure diastolic 70 mm Hg 025 Heart Rate 41 /min 10/25/2024 Height 66 in 10/25/2024 Weight 251.8 lbs 10/25/2024 BMI 40.64 kg/m2 10/25/2024 Encounters Encounter Location Date Provider Diagnosis [facility] [address] [place] [phone] 10/25/2024 Kristen Reynaga Depression 311 and Persistent depressive disorder F34.1 Assessments Encounter Date Diagnosis (ICD Code) Assessment Notes Treatment Notes Treatment Clinical Notes Section Notes 10/25/2024 Depression (ICD-10 - 311) icontinue seeing a counselor weekly 10/25/2024 Persistent depressive disorder (ICD-10 - F34.1) Plan Of Treatment Medication Medication Name Sig Start Date Stop Date Notes Zoloft 50 MG 1 tablet Orally Once a day Treatment Notes Assessment Notes Depression icontinue seeing a juwan brody weekly Next Appt Details Follow Up: 2 Months, Reason: Progress Notes * LISSETH SOLORZANODOB: [birth year] (35 yo F)Acc No.[id number]:10/25/2024 Progress Notes Patient: LISSETH FREY Provider: EVANS Pichardo :1990 A ge:34 Y S ex:Female Date:10/25/2024 Address:[facility] [address], [place], [id number] Pcp:Lux Barrios Subjective: * Chief Complaints: * 1 . 2 week f/u. * HPI: P sychology: 34 year old female presents with c/o depression P t sts she is doing well on the Zoloft medication. Denies : sleep disturbances P t sts her sleeping patterns are better. D enies : Appetite Change P t sts she is no longer have issues with her eating habits. Pt sts it is better. continues to work ; continues with counseling; brief HOOK after starting which reolved after 2 days. * ROS: R ESPIRATORY: no S hortness [...] Does not smoke. Alcohol: no. * Medications: T aking Zoloft 50 MG Tablet 1 tablet Orally Once a day , Medication List reviewed and reconciled with the patient * Allergies: P enicillins: joint swelling, Cefaclor: joint swelling. Objective: * Vitals: W t: 251.8, Temp: 98.6, BP: 120/70, HR: 41, O2 Sat: 100% on RA, Nurse: zahida, Ht: 66, BMI:40.64. * Examination: P sychology: General Appearance: NAD, appears healthy, alert, pleasant. G rooming : adequate. E ye contact : normal. M ood : pleasant, good.?Heart: R RR 50/min. L ungs: CTAB A&P. N eurologic Exam: alert and oriented. Assessment: * Assessment: 1. D epression - 311 (Primary) 2 . P ersistent depressive disorder - F34.1? Plan: * Treatment: * Procedure Codes: 3 074F SYST BP LT 130 MM HG, 3078F DIAST BP < 80 MM HG * Follow Up: 2 Months * Images: Billing Information: * Visit Code: 79142 Office Visit, Est Pt., Level 3. * Procedure Codes: 3074F SYST BP LT 130 MM HG. 3078F DIAST BP < 80 MM HG. * Electronic signature of Nevin Reynaga APRN on 07/10/2025 at 06:27 PM EST Sign off status: Pending * Provider: EVANS Pichardo Date: 0 10/25/2024 Generated for Chandler aaron/Sadie/Helen on: 1 09/10/2024 06:27 PM EST History and Physical Notes * HPI (History of Present Illness) Category Sub-Category Detail Notes Category Not es Psychology Appetite Change Pt sts she is no longer have issues with her eating habits. Pt sts it is better continues to work ; continues with counseling; brief HOOK after starting which reolved after 2 days sleep disturbances Pt sts her sleeping patterns are better depression Pt sts she is doing well on the Zoloft medication Examination Category Sub-Category Detail Notes Category Not es Psychology Heart: RRR 50/min Lungs: CTAB A&P General Appearance: NAD, appears healthy , alert, pleasant Neurologic Exam: alert and oriented Grooming : adequate Eye contact : normal Mood : pleasant, good
--- OUTSIDE RECORDS SUMMARY | 2024-11-15 05:30 | XMS_ITS ---
[facility] [address] [place] [phone] Care Team Providers Care Collections Analyst Name Role Phone Lux Barrios Primary Care Provider Kristen Reynaga Unavailable [phone] Allergies Allergen (clinical drug ingredient) Drug/Non Drug Allergy documented on EMR Reaction Allergy Type Onset Date Status cefaclor Cefaclor joint swelling Drug Allergy Ac tive Substance with penicillin structure and antibacterial mechanism of action (substance) Penicillins joint swelling Drug Allergy Active REASON FOR VISIT rash on arm and discuss meds Medications Medication SIG (Take, Route, Fr equency, Duration) Notes Start Date End Date Status Medrol 4 MG as directed orally d aily; Duration: 6 days 11/15/2024 Active Bactrim DS 800-160 MG 1 tablet Orally Th ree times a Week; Duration: 10 day(s) 11/15/2024 Active Tylenol 325 MG 1 tablet as needed O rally every 6 hrs Active Zoloft 100 MG 1 tablet Orally Once a day; Duration: 30 days Active Vital Signs Blood pressure systolic 126 mm Hg 11/16/19 25 Blood pressure diastolic 72 mm Hg 025 Heart Rate 49 /min 11/15/2024 Height 66 in 11/15/2024 Weight 254.2 lbs 11/15/2024 BMI 41.02 kg/m2 11/15/2024 Encounters Encounter Location Date Provider Diagnosis [place] [address] [facility] [address] [place] [phone] 11/15/2024 Kristen Reynaga Acute cellulitis L03.90 ; Acute contact dermatitis L25.9 ; Bronchitis, not specified as acute or chronic J40 and Depression 311 Assessments Encounter Date Diagnosis (ICD Code) Assessment Notes Treatment Notes Treatment Clinical Notes Section Notes 11/15/2024 Acute cellulitis (ICD-10 - L03.90) rash on right arm appears to be infective dermatitis and will start ABX; instructed on infection control to prevent spreading 11/15/2024 Acute contact dermatitis (ICD-10 - L25.9) macular rash on abdomen appears to be contact dermatitis possible from soap preop 11/15/2024 Bronchitis, not specified as acute or chronic (ICD-10 - J40) 11/15/2024 Depression (ICD-10 - 311) will increase med Plan Of Treatment Medication Medication Name Sig Start Date Stop Date Notes Medrol 4 MG as directed orally d aily; Duration: 6 days 11/15/2024 Bactrim DS 800-160 MG 1 tablet Orally Th ree times a Week; Duration: 10 day(s) 11/15/2024 Zoloft 100 MG 1 tablet Orally Once a day; Duration: 30 days Treatment Notes Assessment Notes Acute cellulitis rash on right arm ap pears to be infective dermatitis and will start ABX; instructed on infection control to prevent spreading Acute contact dermatitis macular rash on abdomen appears to be contact dermatitis possible from soap preop Depression will increase med Next Appt Details Follow Up: 1-2 months, Precious n: Progress Notes * LISSETH SOLORZANODOB: [birth year] (35 yo F)Acc No.[id number]:11/15/2024 Progress Notes Patient: LISSETH FREY Provider: EVANS Pichardo :1990 A ge:34 Y S ex:Female Date:11/15/2024 Address:[facility] [address], [place], [phone] Pcp:Lux Barrios Subjective: * Chief Complaints: * 1 . Rash on arm and discuss meds. * HPI: D ermatology: right arm rash is itchy and has been draining. 34 year old female presents with c/o rash P t is here today for a rash on her rt inner arm and sts it has now gone to her stomach. Pt sts she did have surgery on and is unaware if she had an alletgic reaction to the Iodoine. H PI: c/o Patient is here today for P t would like to discuss medications. P sychology: would like to increase her med; had a stressful last week with her surgery. c/o stress. c/o Anxiety. c/o depression. * ROS: R ESPIRATORY: no S hortness of breath. n o C hest congestion.?no C ough. C ARDIOLOGY: no C hest pain. n o P alpitations. n o L eg edema. n o S hortness of breath. D ERMATOLOGY: Rash y es, r ight arm and abdomen. n o H jennifer.? P SYCHOLOGY: Depression y es. H igh stress level yes. ? * Medical History: C at [place] Fever 6 yo, Current on immunizations., Mitral valve prolapse. * Surgical History: C section 05/2010, bilateral tubal ligation 10/2024. * Family History: F ather: alive 44 yrs. M other: alive 42 yrs. P aternal Grand Father: . P aternal Grand Mother: alive. 1 brother(s) , 1 sister(s) . . * Social History: C URRENT TOBACCO USE: No . C affeine: yes, frequency:some. Home smoke detector use: no. Past smoking status: no, Smoking status: Does not smoke. Alcohol: no. * Medications: T aking Tylenol 325 MG Tablet 1 tablet as needed Orally every 6 hrs , Taking Zoloft 50 MG Tablet 1 tablet Orally Once a day , Medication List reviewed and reconciled with the patient * Allergies: P enicillins: joint swelling, Cefaclor: joint swelling. Objective: * Vitals: W t: 254.2, Temp: 98.1, BP: 126/72, HR: 49, Nurse: juan david, Ht: 66, BMI:41.02. * Examination: G eneral Examination: General Appearance: N AD , appears healthy , alert , pleasant , well nourished and hydrated. L ungs: C TAB A&P. S kin: m acular rash on abdomen around surgical site; surgical incision clean and healing; right arm white papular rash with med covering most. P sychology: Grooming : a dequate. E ye contact : n ormal. M ood : f lat affect. N eurologic Exam: a lert and oriented. Assessment: * Assessment: 1. A cute cellulitis - L03.90 (Primary) 2 . A cute contact dermatitis - L25.9 3 . B ronchitis, not specified as acute or chronic - J40 4 .?Depression - 311 Plan: * Treatment: 2. A cute contact dermatitis Start Medrol Tablet Therapy Pack, 4 MG, as directed, orally, daily, 6 days, 1, Refills 0. ? Notes: macular rash on abdomen appears to be contact dermatitis possible from soap preop 3. D epression Continue Zoloft Tablet, 100 MG, 1 tablet, Orally, Once a day, 30 days, 30 Tablet, Refills 5. ? Notes: will increase med * Procedure Codes: 3 074F SYST BP LT 130 MM HG, 3078F DIAST BP < 80 MM HG * Follow Up: 1 -2 months * Images: Billing Information: * Visit Code: 30114 Office Visit, Est Pt., Level 4. * Procedure Codes: 3074F SYST BP LT 130 MM HG. 3078F DIAST BP < 80 MM HG. * Electronic signature of Nevin Reynaga APRN on 07/10/2025 at 06:27 PM EST Sign off status: Pending * Provider: EVANS Pichardo Date: 0 11/15/2024 Generated for Chandler aaron/Sadie/Helen on: 1 09/10/2024 06:27 PM EST History and Physical Notes * HPI (History of Present Illness) Category Sub-Category Detail Notes Category Not es Dermatology rash Pt is here today for a rash on her rt inner arm and sts it has now gone to her stomach. Pt sts she did have surgery on and is unaware if she had an alletgic reaction to the Iodoine Psychology stress Anxiety depression HPI Patient is here today for Pt would like t o discuss medications Examination Category Sub-Category Detail Notes Category Not es General Examination Lungs: CTAB A&P General Appearance: NAD , appears health y , alert , pleasant , well nourished and hydrated Skin: macular rash on abdo men around surgical site; surgical incision clean and healing; right arm white papular rash with med covering most Psychology Neurologic Exam: alert and oriented Grooming : adequate Eye contact : normal Mood : flat affect
--- OUTSIDE RECORDS SUMMARY | 2025-01-04 09:35 | XMS_ITS ---
Author Organization [facility] Address [address] [facility] [address] [place] [phone] Care Team Providers Care Information Manager Name Role Phone Lux Barrios Primary Care Provider [phone] Tiara Cason [phone] Allergies Allergen (clinical drug ingredient) Drug/Non Drug Allergy documented on EMR Reaction Allergy Type Onset Date Status cefaclor Cefaclor joint swelling Drug Allergy Ac tive Substance with penicillin structure and antibacterial mechanism of action (substance) Penicillins joint swelling Drug Allergy Active REASON FOR VISIT rash Medications Medication SIG (Take, Route, Frequency, Duration) Notes Start Date End Date Status Medrol 4 MG as directed Orally 01/04/2025 Active Zoloft 100 MG 1 tablet Orally Once a day; Duration: 30 days Active Vital Signs Blood pressure systolic 110 mm Hg 01/05/20 25 Blood pressure diastolic 64 mm Hg 025 Heart Rate 79 /min 01/04/2025 Height 66 in 01/04/2025 Weight 251 lbs 01/04/2025 BMI 40.51 kg/m2 01/04/2025 Encounters Encounter Location Date Provider Diagnosis [facility] [address] [place] [phone] 01/04/2025 Tiara Cason Poison sebastian L2 3.7 Assessments Encounter Date Diagnosis (ICD Code) Assessment Notes Treatment Notes Treatment Clinical Notes Section Notes 01/04/2025 Poison sebastian (ICD-10 - L23.7) Continue topical calamine and or Benadryl for itching Plan Of Treatment Medication Medication Name Sig Start Date Stop Date Notes Medrol 4 MG as directed Orally 01/04/2025 Treatment Notes Assessment Notes Poison sebastian Continue topical adt amine and or Benadryl for itching Next Appt Details Follow Up: prn, Reason: Progress Notes * LISSETH SOLORZANODOB: [birth year] (35 yo F)Acc No.[id number]:01/04/2025 Progress Notes Patient: LISSETH FREY Provider: Tiara Cason M.D. :1990 A ge:34 Y S ex:Female Date:01/04/2025 Address:[facility] [address] , [place], [phone] Pcp:Lux Barrios Subjective: * Chief Complaints: * 1 . Rash. * HPI: D ermatology: 34 year old female presents with c/o rash P t complains of itchy rash that started on Friday after she had been working in the yard. Pt states that rash started on lt lower leg and has spread up the lt side of her body. Pt states she has been putting Calamine lotion on the rash but has not had any relief. * ROS: C ARDIOLOGY: no C hest pain. n o S hortness of breath. ? G ASTROENTEROLOGY: no N ausea. n o V omiting. n o D iarrhea.? U ROLOGY: no D ifficulty urinating. n o B lood in urine. * Medical History: C at [place] F[place] [...] Alcohol: no. * Medications: T aking Zoloft 100 MG Tablet 1 tablet Orally Once a day , Discontinued Tylenol 325 MG Tablet 1 tablet as needed Orally every 6 hrs , Discontinued Bactrim DS 800-160 MG Tablet 1 tablet Orally Three times a Week , Discontinued Medrol 4 MG Tablet Therapy Pack as directed orally daily , Medication List reviewed and reconciled with the patient * Allergies: P enicillins: joint swelling, Cefaclor: joint swelling. Objective: * Vitals: W t: 251, Temp: 97.8, BP: 110/64, HR: 79, Nurse: pedro, Ht: 66, BMI:40.51. * Examination: D ermatology: S he has patches of papulovesicular rash on her left arm and both legs. Vesicles on the left lower leg are weeping. Assessment: * Assessment: 1. P wu sebastian - L23.7 (Primary) Plan: * Treatment: * Procedure Codes: 1 036F TOBACCO NON-USER, G8783 BP SCR PRFRM RCMDD DEFIND SCR INTVL, G8752 MOST RECENT SYSTOLIC BP < 140MM HG, G8754 MOST RECENT DIASTOLIC BP < 90MM HG * Follow Up: p rn * Images: Billing Information: * Visit Code: 22039 Office Visit, Est Pt., Level 3. * Procedure Codes: 1036F TOBACCO NON-USER. G8783 BP SCR PRFRM RCMDD DEFIND SCR INTVL. G8752 MOST RECENT SYSTOLIC BP < 140MM HG. G8754 MOST RECENT DIASTOLIC BP < 90MM HG. * Electronic signature of Tiara Cason MD on 07/10/2025 at 06:27 PM EST Sign off status: Pending * Provider: Tiara Cason M.D. Date: 0 01/04/2025 Generated for Chandler aaron/Sadie/Ninaitting on: 1 09/10/2024 06:27 PM EST History and Physical Notes * HPI (History of Present Illness) Category Sub-Category Detail Notes Category Not es Dermatology rash Pt complains of itchy rash that started on Friday after she had been working in the yard. Pt states that rash started on lt lower leg and has spread up the lt side of her body. Pt states she has been putting Calamine lotion on the rash but has not had any relief Examination Category Sub-Category Detail Notes Category Not es Dermatology She has patches of papulovesicular rash on her left arm and both legs. Vesicles on the left lower leg are weeping.
--- NOTE | 2025-07-10 18:21 | HMH.EDGENADL ---
Discharge Plan Disposition Patient Disposition: Home, Self-Care Condition: Good Prescriptions Prescriptions: New Mary Carmen DVT-PE Treat 30D Start 5 mg (74 tabs) tablets,dose pack See Rx Instructions .ROUTE .COMPLEX Qty: 74 0RF Rx Instructions: orally per package directions oxycodone 5 mg tablet 5 mg PO Q8H PRN (Reason: pain) Qty: 7 0RF No Action methylprednisolone 4 mg tablets,dose pack 4 mg PO PER PKG DIR Qty: 21 0RF diclofenac sodium [Voltaren Arthritis Pain] 1 % gel 4 g topical QID PRN (Reason: pain) 30 Days Qty: 100 2RF Rx Instructions: apply to heel; ankle, foot; for foot includes sole/toes/top of foot meloxicam 7.5 mg tablet 7.5 mg PO DAILY 30 Days Qty: 30 2RF Referrals Follow up/Referrals: Hiren Barrios MD [Primary Care Provider, Medical] - See instructions Clinical Impressions Clinical Impression: Pulmonary embolism Instructions Patient Instructions: Pulmonary Embolism Print Language Print Language: Nigerian Discharge ED Provider: Molly Cavanaugh General Adult HPI General Chief complaint: PAIN Stated complaint: pain left side radiating down left arm,soa Time Seen by Provider: 07/10/25 18:21 History of Present Illness HPI narrative: Patient is a 35-year-old with past medical history with mitral regurgitation presents to the emergency department with epigastric and chest pain radiating to her left shoulder back and left flank that started at 4 PM and worsened over she lies down associated with nausea no vomiting shortness of breath. No history of blood clots no recent travel outside the night states no lower extremity swelling. No diarrhea dysuria or increased urinary frequency surgical history significant for 2 C-sections and tubal. No cough or congestion. Pain is worsened and is severe. no improvement after Tylenol. Related Data Previous Rx's ?Medication ?Instructions ?Recorded methylprednisolone 4 mg tablets in 4 mg PO PER PKG DIR Pain, swelling 06/22/24 a dose pack #21 tabs diclofenac sodium 1 % topical gel 4 g topical QID PRN pain 30 days 06/07/25 (Voltaren Arthritis Pain) #100 grams meloxicam 7.5 mg tablet 7.5 mg PO DAILY pain 30 days #30 07/04/25 tabs apixaban 5 mg (74 tabs) tablets in See Rx Instructions PO .COMPLEX 07/10/25 a dose pack (Eliquis DVT-PE Treat #74 tabs 30D Start) oxycodone 5 mg tablet 5 mg PO Q8H PRN pain #7 tabs 07/10/25 Allergies Allergy/AdvReac Type Severity Reaction Status Date / Time cefaclor Allergy Verified 07/27/24 08:54 Cephalosporins Allergy Verified 07/27/24 08:54 Penicillins Allergy Verified 07/27/24 08:[facility] Dis[facility]: The information contained in this section may have been updated after the patient was seen, as this information can be updated by other users. Medical History Mitral valve prolapse Surgical History History of delivery Family History Mother Diabetes Social History Smoking Status: Never smoker alcohol intake: never current occupational status: other Travel in the last 8 weeks?: None household members: other Have you lived/traveled outside US in past 30 days?: No Contact w/someone who lives/traveled outside US past 30 days?: No Exposure to someone with infectious disease in past 14 days?: No Do you have a fever (greater than 100.4 F or 38 C)?: No Have you tested positive for COVID-19?: No Exposed to someone with COVID-19 in past 14 days?: No Do you have a sore throat?: No Do you have a cough?: No Do you have any weakness?: No Do you have any diarrhea?: No Are you experiencing any unusual bleeding?: No Do you have any muscle aches/pain?: Yes Do you have any abdominal pain?: No Are you experiencing loss of taste or smell?: No Other Medical History Have you received the Flu Vaccine for this season: No Have you received the Pneumonia Vaccine: No ROS Obtained: Yes All systems reviewed & no additional complaints except as documented Physical Exam General General appearance: alert and in distress Comment: uncomfortable in bed Eye Eye exam: Present PERRL ENT ENT exam: Present mucous membranes moist Chest Chest inspection: Present symmetric chest wall rise; Absent tenderness Respiratory Respiratory exam: Present normal lung sounds bilaterally; Absent respiratory distress Cardiovascular Cardiovascular exam: Present regular rate and normal rhythm Abdominal Exam Abdominal exam: Present soft and tenderness (epigastrium, LUQ, left flank) Extremities Exam Extremities exam: Present normal inspection Back Exam Back exam: Present normal inspection and CVA tenderness (L) Neurological Exam Neurological exam: Present alert and oriented X3 Skin Skin exam: Present warm, dry and other (no lower extremity edema) Medical Decision Making Medical Records Screening: Per USPSTF and CDC recommendations, given the prevalence of disease in our region, it is our hospital?s policy to screen for HIV and viral Hepatitis for all patients aged 18 and over and those with ongoing risk factors. Narciso Inquiry Pt receiving controlled substance: No Vital Signs: 07/10/25 18:22 07/10/25 18:29 07/10/25 18:29 Temperature 98.2 F 98.2 F Temperature Source Oral Oral Pulse Rate 78 77 Pulse Rate [Right] 77 Respiratory Rate 18 18 Blood Pressure 135/89 135/89 Blood Pressure [Right Arm] 135/89 Blood Pressure Mean Blood Pressure Mean [Right Arm] 104 Blood Pressure Source Automatic Cuff Blood Pressure Source [Right Arm] Automatic Cuff Blood Pressure Position Supine Blood Pressure Position [Right Arm] Supine 02 Sat by Pulse Oximetry 98 99 99 Oxygen Delivery Method Room Air Room Air 07/10/25 18:46 07/10/25 18:56 Temperature Temperature Source Pulse Rate 65 Pulse Rate [Right] Respiratory Rate 21 Blood Pressure 131/59 L Blood Pressure [Right Arm] Blood Pressure Mean 85 Blood Pressure Mean [Right Arm] Blood Pressure Source Blood Pressure Source [Right Arm] Blood Pressure Position Blood Pressure Position [Right Arm] 02 Sat by Pulse Oximetry 98 98 Oxygen Delivery Method Room Air Lab Data Lab Results 07/10/25 18:33: WBC 10.5, RBC 4.67, Hgb 12.4, Hct 38.7, MCV 82.9, MCH 26.6 L, MCHC 32.0, RDW 14.1, Plt Count 279, MPV 11.2 H, Neut % (Auto) 70.0, Lymph % (Auto) 21.4, [place] % (Auto) 6.2, Eos % (Auto) 1.5, Baso % (Auto) 0.5, Neut # (Auto) 7.3, Lymph # (Auto) 2.2, [place] # (Auto) 0.7, Eos # (Auto) 0.2, Baso # (Auto) 0.1, Sodium 142, Potassium 3.5, Chloride 106, Carbon Dioxide 24, Anion Gap 15.5 H, BUN 19 H, Creatinine 0.90, Estimated Creat Clear 159, Estimated GFR 72, Est GFR ( Amer) 87, Glucose 145 H, Calcium 9.6, Total Bilirubin 0.5, AST 35, ALT 23, Alkaline Phosphatase 94, Troponin I < 0.01, Total Protein 8.3 H, Albumin 4.7, Globulin 3.6 H, Albumin/Globulin Ratio 1.3, Lipase 66, Serum HCG, Qual Negative, HCV Ab SAMARA w/Rflx PCR Qn Negative, HIV Ag/Ab Combo Qual Negative 07/10/25 18:48: Urine Color Yellow, Urine Appearance Clear, Urine pH 5.5, Ur Specific [place] 1.040 H, Urine Protein Trace, Urine Glucose (UA) Negative, Urine Ketones Negative, Urine Blood Negative, Urine Nitrate Negative, Urine Bilirubin 1+ A, Urine Urobilinogen 0.2, Ur Leukocyte Esterase Trace, Urine RBC None, Urine WBC 3-5, Ur Squamous Epith Cells Occasional, Urine Bacteria 1+, Urine Mucus 1+ 07/10/25 18:33 07/10/25 18:33 Orders (Tests/Meds): ED MEDICATIONS Generic Name Dose Route Start Last Admin Trade Name Freq PRN Reason Stop Dose Admin Apixaban 10 mg 07/10/25 19:55 Apixaban 5mg Tablet PO 07/10/25 19:56 ONCE ONE Belladonna Alkaloids 60 ml 07/10/25 19:39 07/10/25 19:43 Belladonna Alkaloids 60 Ml Ml PO 07/10/25 19:40 60 ml ONCE ONE Administration Famotidine 20 mg 07/10/25 19:39 07/10/25 19:43 Famotidine 20mg/2ml Vial IV 07/10/25 19:40 20 mg ONCE ONE Administration Nitroglycerin 0.4 mg 07/10/25 18:40 07/10/25 19:33 Nitroglycerin 0.4mg Sl Tablet SL 07/11/25 18:42 0.4 mg Q5MINP PRN Administration Chest Pain Sodium Chloride 8 ml 07/10/25 19:39 07/10/25 19:42 Sodium Chloride 0.9% 10ml Vial IV 08/09/25 19:38 8 ml NEEDED PRN Administration dilute pepcid Discontinued Medications Generic Name Dose Route Start Last Admin Trade Name Daniel PRN Reason Stop Dose Admin Aspirin 324 mg 07/10/25 18:40 07/10/25 19:32 Aspirin 81mg Chewable Tablet PO 07/10/25 18:41 324 mg ONCE ONE Administration Lactated Ringer's 1,000 mls @ 999 mls/hr 07/10/25 18:40 07/10/25 19:33 Lactated Ringer's 1000 Ml Bag IV 07/10/25 19:40 999 mls/hr .Q1H1M ONE Administration Iopamidol 80 ml 07/10/25 19:17 07/10/25 19:18 Iopamidol-370 (76%);100ml Bottle IV 07/10/25 19:18 80 ml ONCE ONE Administration Morphine Sulfate 4 mg 07/10/25 18:40 07/10/25 19:32 Morphine 4mg/Ml Syringe IV 07/10/25 18:41 4 mg ONCE ONE Administration Ondansetron HCl 4 mg 07/10/25 18:40 07/10/25 19:32 Ondansetron 4mg/2ml Vial IV 07/10/25 18:41 4 mg ONCE ONE Administration Sodium Chloride 50 ml 07/10/25 19:17 07/10/25 19:17 0.9 % Sodium Chloride 50 Ml Vial IV 07/10/25 19:18 50 ml ONCE ONE Administration Sodium Chloride 10 ml 07/10/25 19:17 07/10/25 19:17 Sodium Chloride 0.9% 10ml Syr (Rad Only) IV 07/10/25 19:18 10 ml ONCE ONE Administration ORDERS Category Date Time Status CT abdomen pelvis w con Stat Cat Scan 07/10/25 18:[address] angio chest - dissection Stat Cat Scan 07/10/25 18:40 Completed POCUS Point of Care (ER Only) Stat Exams 07/10/25 18:28 Completed Complete Blood Count Auto Diff Stat Lab 07/10/25 18:33 Completed Comprehensive Metabolic Panel Stat Lab 07/10/25 18:33 Completed HCG Qualitative, Serum Stat Lab 07/10/25 18:33 Completed HIV Combo Stat Lab 07/10/25 18:33 Completed Hepatitis C Ab Qual. W/ RFX Stat Lab 07/10/25 18:33 Completed Lactic Acid Stat Lab 07/10/25 18:42 Ordered Lipase Stat Lab 07/10/25 18:33 Completed Troponin I Q3H Lab 07/10/25 21:45 Ordered Troponin I Q3H Lab 07/11/25 00:45 Ordered Troponin I Stat Lab 07/10/25 18:33 Completed Urinalysis and Microscopic Stat Lab 07/10/25 18:48 Completed Medical Decision Narrative: In summary, this is a 35-year-old female with presents to the emergency department today with chest pain. On initial evaluation patient is hemodynamically stable saturating appropriately on room air afebrile and in significant pain but no acute distress. Differential diagnosis includes but is not limited to ACS PE pneumonia pneumothorax aortic dissection, acute valvular dysfunction pancreatitis cholecystitis pyelonephritis urolithiasis.Based on these concerns, I ordered CBC, CMP lactic acid CT a chest, CT abdomen pelvis with IV contrast UA beta-hCG, troponin, ecg ECG personally interpreted demonstrates borderline sinus bradycardia no ST elevation ST depression or T wave inversions concerning for ischemia Patient received aspirin nitroglycerin morphine 1 L of LR Zofran for treatment. Labs personally reviewed demonstrate normal initial troponin, elevated anion gap, no leukocytosis, UA nitrate negative with squamous epithelial cell trace pyuria will not treat. CT imaging personally interpreted demonstrate mild dilation of aortic root, no dissection, no saddle pe, no urolithiasis, no cholecystitis. Per rads bilateral basilar posteriorlateral segmental PEs, no RHS per ct, POCUS echo or elevated troponin. Pt given one dose of elliquis 10 mg tonight with outpt script for elliquis starter pack. Recomended follow up with PCP for further workup of unprovoked PE. On reassessment pt has improvement in symptoms. agreeable with dc at this time. Procedures Limited Ultrasound Indication:: Chest pain Views:: Limited Cardiac Ultrasound Indication: Chest pain Identified cardiac views: -Cardiac parasternal long axis -Cardiac parasternal short axis -Cardiac apical four-chamber Findings: -Cardiac activity present -Pericardial effusion absent -Right heart strain absent -aortic root dilation Impression: -aortic root dilation Images were saved to permanent archive The study was technically adequate CPT: 59658 This study was performed by me, and I personally interpreted all images/videos. Based on my clinical judgement, these images were [adequate/inadequate] and [did/did not] necessitate further imaging. Limited RUQ ultrasound Indication: Abdominal pain Identified structures: -Gallbladder -Gallbladder wall Findings: Sonographic Colon sign: absent Gallstones: Absent Sludge: Absent Pericholecystic fluid: absent Impression: normal GB Images were saved to permanent archive The study was not technically adequate CPT 02990-99 This study was performed by me, and I personally interpreted all images/videos. Based on my clinical judgement, these images were [adequate/inadequate] and [did/did not] necessitate further imaging. Critical Care Critical Care Time Critical Care Time: No
[2025-07-10 18:22] VITALS: BP 135/89; PULSE 78; O2SAT 98
--- NOTE | 2025-07-10 18:25 | ECG_ITS ---
APPROVED REPORT Exam: Resting ECG HR:59 bpm ECG Measurements Heart Rate 59 AXES DE 170 P 37 QRSd 93 QRS 28 QT 396 T 48 QTc 396 Conclusion SINUS BRADYCARDIA NONSPECIFIC T-WAVE ABNORMALITY No STEMI Electronically signed by : JD TORRES, 07/11/2025 05:56:46
--- OUTSIDE RECORDS SUMMARY | 2025-07-10 18:27 | XMS_ITS | Clinical Summary ---
Author Organization [facility] Address [facility] [place] [address] Care Team Providers Care Field Service Tech Name Role Phone Unavailable Primary Care Provider Unavailabl e Source Comments [facility] is fully rolled out with thefollowing exceptions:General Clinical Research [facility] Social History Tobacco Use Types Packs/Day Years Used Date Smoking Tobacco: Never Assessed Comments Unknown Sex and Gender Information Value Date Recorded Sex Assigned at Not on file Legal Sex Female 5:18 AM EST Gender Identity Not on file Sexual Orientation Not on file Plan of Treatment Health Maintenance Due Date Last Done Comments MMR IMMUNIZATION (1 of 1 - S tandard series) 1993 DTAP/Tdap/Td IMMUNIZATION (1 - Tdap) 1999 Yearly Physical Ages 3-18+ 2003 VARICELLA IMMUNIZATION (1 of 2 - 13+ 2-dose series) 2005 HEPATITIS B IMMUNIZATION (1 of 3 - 19+ 3-dose series) 2011 HPV IMMUNIZATION (1 - 3-dose SCDM series) 2019 AMB SEASONAL FLU VACCINE (#1) 03/21/2025 COVID-19 Vaccine ( - 2024-2 6 season) 2025 HIB IMMUNIZATION Aged Out No longer e ligible based on patient's age to complete this topic IPV IMMUNIZATION Aged Out No longer e ligible based on patient's age to complete this topic MCV4 IMMUNIZATION Aged Out No longer eligible based on patient's age to complete this topic MENINGOCOCCAL B VACCINE Aged Out No l onger eligible based on patient's age to complete this topic PNEUMOCOCCAL IMMUNIZATION Aged Out No longer eligible based on patient's age to complete this topic Respiratory Syncytial Virus (RSV) <20mo Aged Out No longer eligible b ased on patient's age to complete this topic
--- OUTSIDE RECORDS SUMMARY | 2025-07-10 18:28 | XMS_ITS | Patient Health Record ---
[facility] Address [address] [place] [id number] Care Team Providers Care Kiss Machine Operator Name Role Phone Lux Barrios Primary Care Provider Tiara Cason Unavailable [phone] Kristen Reynaga Unavailable [phone] Allergies Allergen (clinical drug ingredient) Drug/Non Drug Allergy documented on EMR Reaction Allergy Type Onset Date Status cefaclor Cefaclor joint swelling Drug Allergy Ac tive Substance with penicillin structure and antibacterial mechanism of action (substance) Penicillins joint swelling Drug Allergy Active Medications Medication SIG (Take, Route, Fr equency, Duration) Notes Start Date End Date Status Medrol 4 MG as directed Orally 01/04/2025 Active Sertraline HCl 100 MG Take 1 tablet by m outh once daily; Duration: 30 Active Immunizations Vaccine Route Administration Date Status Comme nts xGardasil IM Intramuscular 09/04/2006 Administered xGardasil IM Intramuscular 11/03/2006 Administered xGardasil IM Intramuscular 03/09/2007 Administered xFlu shot- 6months-36 months of waf-MUMY-BMSU-trivalent IM Intramuscular 05/21/2012 Administered Tetanus Tdap-Adacel (over 7yrs) IM Intramuscular 05/21/2012 Administered Problems Problem Type SNOMED Code ICD Code Onset Dates Problem Status W/U Status Risk Notes Problem Menstrual disorder (581258893) Irregular menses (N92.6) Active confirmed Problem Iron deficiency anemia secondary to inadequate dietary iron intake (376980763) Iron deficiency anemia secondary to inadequate dietary iron intake (D50.8) Active confirmed Problem Abnormal findings diagnostic imaging of liver and biliary tract (327160469) Abnormal ultrasound of liver (R93.2) Active confirmed Problem Major depression, single episode (94128168) Major depressive disorder, remission status unspecified, unspecified whether recurrent (F32.9) Active confirmed Problem Persistent depressive disorder (0903180044) Persistent depressive disorder (F34.1) Active confirmed Vital Signs Heart Rate 79 /min 01/04/2025 Blood pressure diastolic 64 mm Hg 01/04/2025 Height 66 in 01/04/2025 Blood pressure systolic 110 mm Hg 01/04/2025 Weight 251 lbs 01/04/2025 BMI 40.51 kg/m2 01/04/2025 Encounters Encounter Location Date Provider Diagnosis [facility] [facility] [address] [place] [id number] 10/11/2024 Kristen Reynaga Depression 311 and Major depressive disorder, remission status unspecified, unspecified whether recurrent F32.9 [facility] [address] [place], [place] [id number] 10/25/2024 Kristen Reynaga Depression 311 and Persistent depressive disorder F34.1 [facility] [address] [place], [place] [id number] 11/15/2024 Kristen Reynaga Acute cellulitis L03.90 ; Acute contact dermatitis L25.9 ; Bronchitis, not specified as acute or chronic J40 and Depression 311 [facility] [address] [facility] [address] [place], [place] [id number] 01/04/2025 R Pablo Kamla Poison sebastian L23.7 [facility] [address] [place], [place] [phone] 07/04/2025 Lux Barrios Depression 311 Assessments Encounter Date Diagnosis (ICD Code) Assessment Notes Treatment Notes Treatment Clinical Notes Section Notes 10/11/2024 Depression (ICD-10 - 311) is seeing a counselor weekly and will continue to do so 10/25/2024 Depression (ICD-10 - 311) icontinue seeing a counselor weekly 11/15/2024 Acute cellulitis (ICD-10 - L03.90) rash on right arm appears to be infective dermatitis and will start ABX; instructed on infection control to prevent spreading 11/15/2024 Acute contact dermatitis (ICD-10 - L25.9) macular rash on abdomen appears to be contact dermatitis possible from soap preop 01/04/2025 Poison sebastian (ICD-10 - L23.7) Continue topical calamine and or Benadryl for itching 07/04/2025 Depression (ICD-10 - 311) 10/25/2024 Persistent depressive disorder (ICD-10 - F34.1) 11/15/2024 Bronchitis, not specified as acute or chronic (ICD-10 - J40) 10/11/2024 Major depressive disorder, remission status unspecified, unspecified whether recurrent (ICD-10 - F32.9) 11/15/2024 Depression (ICD-10 - 311) will increase med Plan Of Treatment Pending Test Test Name Order Date X ray : Foot, left 05/31/2024 X ray : Foot, right 05/31/2024 Insurance Providers Payer Name Payer Address Payer Phone Subscriber Number Group Number Insured Name Patient Relationship to Insured Coverage Start Date Coverage End Date [facility] [facility] [address] [place] [address] [id number] LISSETH SOLORZANO Self - patient is the insured Medications Administered Medication Instructions Date of Administration Dosage Notes B-12 10/02/2017 1 mL depo provera 01/08/2013 Lot [id number] exp: 05/2015 depo provera 08/13/2013 1.0 mL depo provera 11/04/2013 depo provera 01/20/2014 1 mL depo provera 04/28/2014 1 mL xAdministration of injection 04/16/2013 150 mg/ml xAdministration of injection 08/04/2014 150 mg Medical (General) History Medical History History ICD Code Cat Scratch Fever 6 yo Current on immunizations. Mitral valve prolapse Surgical History Surgery Date(Month/Year) C section 05/2010 bilateral tubal ligation 10/2024
[2025-07-10 18:29] VITALS: BP 135/89; PULSE 77; RESP 18; TEMP 36.8; O2SAT 99; BMI 40.3
--- NOTE | 2025-07-10 18:40 | CT_ITS ---
PROCEDURE INFORMATION: Exam: CTA Chest With Contrast Exam date and time: 07/10/2025 7:16 PM Age: 35 years old Clinical indication: Other: Chest pain; Additional info: Cp TECHNIQUE: Imaging protocol: Computed tomographic angiography of the chest with contrast. Exam focused on the arteries. 3D rendering (Not supervised by radiologist): MIP and/or 3D reconstructed images were created by the technologist. Radiation optimization: All CT scans at this facility use at least one of these dose optimization techniques: automated exposure control; mA and/or kV adjustment per patient size (includes targeted exams where dose is matched to clinical indication); or iterative reconstruction. Contrast material: ISO; Contrast volume: 80 ml; Contrast route: INTRAVENOUS (IV); COMPARISON: CT ABDOMEN PELVIS W CON 07/10/2025 7:16 PM FINDINGS: Pulmonary arteries: Filling defects involving the bibasilar posterolateral segmental pulmonary arteries compatible with pulmonary embolism. Aorta: Unremarkable. No aortic aneurysm. No aortic dissection. Lungs: Dependent bilateral lung base opacities favor atelectasis. Pleural spaces: Unremarkable. No pneumothorax. No pleural effusion. Heart: Unremarkable. No cardiomegaly. No pericardial effusion. Lymph nodes: Unremarkable. No enlarged lymph nodes. Liver: Multiple calcific densities of the liver are likely related to prior granulomatous process. Bones/joints: Unremarkable. No acute fracture. Soft tissues: Unremarkable. IMPRESSION: Filling defects involving the bibasilar posterolateral segmental pulmonary arteries compatible with pulmonary embolism. RV/LV = 1.0, no evidence of right heart strain.
--- NOTE | 2025-07-10 18:40 | CT_ITS ---
PROCEDURE INFORMATION: Exam: CT Abdomen And Pelvis With Contrast Exam date and time: 07/10/2025 7:16 PM Age: 35 years old Clinical indication: Abdominal pain; Flank; Left; Additional info: Left flank pain TECHNIQUE: Imaging protocol: Computed tomography of the abdomen and pelvis with contrast. 3D rendering (Not supervised by radiologist): MIP and/or 3D reconstructed images were created by the technologist. Radiation optimization: All CT scans at this facility use at least one of these dose optimization techniques: automated exposure control; mA and/or kV adjustment per patient size (includes targeted exams where dose is matched to clinical indication); or iterative reconstruction. Contrast material: ISOVUE; Contrast volume: 80 ml; Contrast route: IV; COMPARISON: CT ABDOMEN PELVIS W CON 07/10/2025 7:16 PM FINDINGS: Liver: Multiple calcific densities of the liver are likely related to prior granulomatous process. Gallbladder and biliary ducts: Normal. No calcified stones. No ductal dilation. Pancreas: Normal. No ductal dilation. Spleen: Multiple benign-appearing calcific densities of the spleen. Adrenal glands: Normal. No mass. Kidneys and ureters: Normal. No hydronephrosis. Stomach and bowel: Unremarkable. No obstruction. No mucosal thickening. Appendix: No evidence of appendicitis. Intraperitoneal space: Unremarkable. No free air. No significant fluid collection. Vasculature: Unremarkable. No abdominal aortic aneurysm. Lymph nodes: Unremarkable. No enlarged lymph nodes. Urinary bladder: Bladder is decompressed limiting its evaluation. Reproductive: Left ovarian cyst measuring 3.3 cm in diameter. Bones/joints: Mild loss of intervertebral disc space with degenerative changes involving L5-S1. Soft tissues: Normal. IMPRESSION: Left ovarian cyst measuring 3.3 cm in diameter. Consider further evaluation with pelvic ultrasound if pain is localized to the left adnexa.
[2025-07-10 18:46] VITALS: O2SAT 98
[2025-07-10 18:55] LABS: Hematocrit 38.7 % (37.0-47.0); Hemoglobin 12.4 g/dL (12.2-16.2); Immature Granulocytes % 0.4 %; Mean Corpuscular HGB Conc 32.0 g/dL (31.8-35.4); Mean Corpuscular Hemoglobin 26.6 pg (27.0-31.2); Mean Corpuscular Volume 82.9 fl (81-99); Nucleated Red Blood Cells % 0 %; Platelet Count 279 K/mm3 (142-424); Red Blood Count 4.67 M/mm3 (4.20-5.40); Red Cell Distribution Width-SD 42.1 fL; White Blood Count 10.5 K/mm3 (4.8-10.8)
[2025-07-10 18:56] VITALS: BP 131/59; PULSE 65; RESP 21; O2SAT 98
[2025-07-10 18:57] LABS: Albumin Level 4.7 g/dl (3.5-5.0); Chloride 106 mmol/L (98-107); Potassium 3.5 mmoL/L (3.5-5.1); Sodium 142 mmol/L (136-145)
[2025-07-10 18:59] LABS: Blood Urea Nitrogen 19 mg/dl (7-17); Creatinine Clearance Estimated 159 mL/min (50-200); Creatinine,Serum 0.90 mg/dl (0.52-1.04); Estimated Glomerular Filt Rate 72 ml/min (>60); GFR (African American) 87 ML/MIN (>60); HCG Qualitative, Serum Negative (Negative)
[2025-07-10 19:00] LABS: Microscopic, Urine URINE MICROSCOPIC (MICROSCOPIC)
[2025-07-10 19:00] LABS: Alanine Aminotransferase 23 U/L (12-78); Albumin/Globulin Ratio 1.3 (1.1-1.8); Alkaline Phosphatase 94 U/L (38-126); Anion Gap 15.5 mEq/L (5-15); Aspartate Amino Transferase 35 U/L (14-36); Bilirubin,Total 0.5 mg/dl (0.2-1.3); Calcium 9.6 mg/dl (8.4-10.2); Carbon Dioxide 24 mmol/L (22.0-30.0); Globulin 3.6 g/dL (1.3-3.2); Glucose 145 mg/dl (74-100); Lipase 66 U/L (23-300); Total Protein,Serum 8.3 g/dl (6.3-8.2)
[2025-07-10 19:02] LABS: Color,Urine YELLOW (Yellow); Glucose,Urine (UA) Negative (Negative); Ketones,Urine Negative (Negative); Leukocyte Esterase,Urine TRACE (Negative); PH,Urine 5.5 (5.0-8.5); Protein,Urine TRACE (Negative); Urobilinogen,Urine 0.2 EU/dl (0.2)
[2025-07-10 19:04] LABS: Bilirubin,Urine 1+ (Negative); Specific Gravity, Urine 1.040 (1.005-1.030)
[2025-07-10 19:05] LABS: Bacteria,Urine 1+ /lpf; Mucus,Urine 1+ /lpf; Squamous Epithelial Cell,Urine Occasional #/hpf (0-5)
[2025-07-10 19:13] LABS: Troponin I < 0.01 ng/ml (0.00-0.034)
[2025-07-10] MEDS: 0.9 % SODIUM CHLORIDE 50 ML VIAL IV (19:17)
[2025-07-10] MEDS: SODIUM CHLORIDE 0.9% 10ML SYR (RAD ONLY) 10 ML IV (19:17)
[2025-07-10] MEDS: IOPAMIDOL-370 (76%);100ML BOTTLE 80 ML IV (19:18)
[2025-07-10] MEDS: MORPHINE 4MG/ML SYRINGE 4 MG IV (19:32)
[2025-07-10] MEDS: ONDANSETRON 4MG/2ML VIAL 4 MG IV (19:32)
[2025-07-10] MEDS: ASPIRIN 81MG CHEWABLE TABLET 324 MG PO (19:32)
[2025-07-10] MEDS: LACTATED RINGERS 1000ML 1,000 ML 999 ML IV (19:33)
[2025-07-10] MEDS: NITROGLYCERIN 0.4MG SL TABLET 0.4 MG SL (19:33)
[2025-07-10] MEDS: SODIUM CHLORIDE 0.9% 10ML VIAL 8 ML IV (19:42)
[2025-07-10] MEDS: FAMOTIDINE 20MG/2ML VIAL 20 MG IV (19:43)
[2025-07-10] MEDS: BELLADONNA ALKALOIDS 60 ML ML PO (19:43)
[2025-07-10 19:54] LABS: Hepatitis C Ab Qual. W/ RFX NEGATIVE (Negative)
[2025-07-10] MEDS: APIXABAN 5MG TABLET 10 MG PO (20:09)
[2025-07-10 20:15] VITALS: BP 129/78; PULSE 75; RESP 18; TEMP 36.6; O2SAT 98
== END 2025-07-10 20:16 | disposition home or self-care (01) ==
PROVIDERS: Emergency Provider Student in an Organized Health Care Education/Training Program; PCP Family Medicine
DX: I26.99 Other pulmonary embolism without acute cor pulmonale (principal); R07.9 Chest pain, unspecified; R00.1 Bradycardia, unspecified; Z88.1 Allergy status to other antibiotic agents; Z88.0 Allergy status to penicillin
CPT/HCPCS: 71275; 74177; 80053; 81001; 83690; 84484; 84703; 85025; 86803; 87389; 93005; 96361; 96374; 96375; 99285; J1308; J2270; J2405; J7120; Q9967